=== PATIENT | male | born 1995 | race American Indian/Alaskan Native ===

== ENCOUNTER 2016-11-11 15:31 | Observation (INO) | payer BC ==
[2016-11-11] MEDS ORDERED: Sodium Chloride 0.9% 1,000 ML IV STA (15:48)
[2016-11-11] MEDS ORDERED: Folic Acid 1 MG, Thiamine 100 MG, Multivitamin (MVI) 10 ML in Dextrose 5% In Water 1,00... IV SCH (16:00)
--- NOTE | 2016-11-11 16:19 | ED PDOC ---
Arrival/HPI - General Chief Complaint: Abdominal Pain Time Seen by Provider: 11/11/16 15:41 Historian: Patient - History of Present Illness Narrative History of Present Illness (Text): 11/11/16 16:18 21 year old male presents to the emergency department with coffee ground emesis for the past 2-3 days. He also reports some epigastric discomfort. He states he has been drinking for the last week. No chest pain, shortness of breath, or dyspnea on exertion. Time/Duration: < week Symptom Onset: Gradual Symptom Course: Unchanged Modifying Factors (Text): None Past Medical History - Provider Review Nursing Documentation Reviewed: Yes - Infectious Disease Hx of Infectious Diseases: None - Tetanus Immunization Tetanus Immunization: Unknown - Cardiac Hx Cardiac Disorders: No - Pulmonary Hx Respiratory Disorders: Yes Hx Bronchitis: Yes - Neurological Hx Neurological Disorder: No - HEENT Hx HEENT Disorder: No - Renal Hx Renal Disorder: No - Endocrine/Metabolic Hx Endocrine Disorders: No - Hematological/Oncological Hx Blood Disorders: No - Integumentary Hx Dermatological Disorder: No - Musculoskeletal/Rheumatological Hx Musculoskeletal Disorders: No - Gastrointestinal Hx Gastrointestinal Disorders: Yes Hx Gastroesophageal Reflux: Yes - Genitourinary/Gynecological Hx Genitourinary Disorders: No - Psychiatric Hx Psychophysiologic Disorder: No Hx Depression: No Hx Emotional Abuse: No Hx Physical Abuse: No Hx Substance Use: Yes - Surgical History Hx Orthopedic Surgery: Yes (FEET) - Anesthesia Hx Anesthesia: Yes Hx Anesthesia Reactions: No Hx Malignant Hyperthermia: No - Suicidal Assessment Feels Threatened In Home Enviroment: No Family/Social History - Physician Review Nursing Documentation Reviewed: Yes Family/Social History: Unknown Family HX Smoking Status: Light Smoker < 10 Cigarettes Daily Hx Alcohol Use: No Hx Substance Use: Yes Substance used: marijuana Hx Substance Use Treatment: No Allergies/Home Meds Allergies/Adverse Reactions: Allergies No Known Allergies Allergy (Verified 11/11/16 15:53) Home Medications: Home Meds Medication Instructions Recorded Confirmed No Known Home Med 11/11/16 11/11/16 Review of Systems - Physician Review All systems were reviewed & negative as marked: Yes Physical Exam - Physical Exam Narrative Physical Exam (Text): - Review of Systems Constitutional: Normal. absent: Fatigue, Weight Change, Fevers Eyes: Normal ENT: Normal Respiratory: Normal absent: SOB, Cough, Sputum Cardiovascular: Normal absent: Chest pain, MILAN, Palpitations, Syncope Gastrointestinal: Coffee ground emesis, Epigastric discomfort absent: Diarrhea, Nausea Genitourinary: Normal. absent: Dysuria, Frequency, Hematuria Musculoskeletal: Normal. absent: Arthralgias, Back Pain, Neck Pain Skin: Normal Neurological: Normal absent: Focal Weakness Endocrine: Normal Hemo/Lymphatic: Normal Psychiatric: Normal - Physical exam Patient appears age appropriate, speaking full sentences without difficulty - Systems Exam Head: Present: Atraumatic, Normocephalic Pupils: Present: PERRL Extraocular Muscles: Present: EOMI Conjunctiva: Present: Normal Mouth: Present: Moist Mucous Membranes Neck: Present: Normal Range of Motion. No: MIDLINE TENDERNESS, Paraspinal Tenderness Respiratory/Chest: Present: Clear to Auscultation, Good Air Exchange. No: Respiratory Distress, Accessory Muscle Use, Tachypnic Cardiovascular: Present: Regular Rate and Rhythm, Normal S1, S2, Peripheral Pulses Present. No: Murmurs Abdomen: Present: Normal Bowel Sounds, No: Tenderness, Peritoneal Signs, Rebound, Guarding, Distention Back: Present: Normal Inspection. No: Midline Tenderness, Paraspinal Tenderness Upper Extremity: Present: Normal Inspection. No: Cyanosis, Edema Lower Extremity: Present: Normal Inspection. No: Edema Neurological: Present: GCS=15, Speech Normal, cranial nerves II through XII fully intact with no cerebellar abnormality, neuro-sensory fully intact. No focal neurological deficits. Skin: Present: Warm, Dry, Normal Color. No: Rashes Lymphatic: Present: OX3, NI, NC Psychiatric: Present: Alert, Oriented x 3, Normal Insight, Normal Concentration Vital Signs Reviewed: Yes Vital Signs Temp Pulse Resp BP Pulse Ox 11/11/16 18:09 67 16 147/67 97 11/11/16 15:56 98.2 F 85 16 149/71 100 Temperature: Afebrile Blood Pressure: Normal Pulse: Regular Respiratory Rate: Normal Appearance: Positive for: Well-Appearing, Non-Toxic, Comfortable Pain Distress: None Mental Status: Positive for: Alert and Oriented X 3 Medical Decision Making ED Course and Treatment: Impression: 21 year old male presents to the emergency department with coffee ground emesis for the past 2-3 days. On physical exam, patient has no acute findings. Differential Diagnosis included but are not limited to: Gastritis vs upper GI bleed vs peptic ulcer disease Plan: -- EKG, Chest X-ray -- Ativan, Protonix -- Reassess and disposition Progress Notes: CXR Impression: As read by me, no pneumothorax, no pneumonia, no cardiomegaly, no infiltrates 11/11/16 17:31 pt vomited once in the ED vomitus examined, does not appear coffee ground, brown in color Jamar, ED scribe present during rectal examination. Good tone, no hemorrhoids , hemmocult stool negative pt's repeat abd exam is soft/nt/nd 11/11/16 18:09 pt vomited after drinking water unable to tolerate PO aware of and agrees with admission plan Initial EKG shows sinus luzma 58bpm, RBBB, non-specific st-t wave changes in V3 , II. repeat EKG shows no evolving changes pt states PMD is Dr. Rodríguez Whitehead, Dr. Armstrong covering, paged, awaiting callback 11/11/16 18:[address] Armstrong, accepted pt to med/surg obs under her service - Lab Interpretations Lab Results: 11/11/16 16:05 11/11/16 16:05 Lab Results 11/11/16 16:05: Sodium 139, Potassium 3.4 L, Chloride 98, Carbon Dioxide 26, Anion Gap 18, BUN 18, Creatinine 1.1, Est GFR ( Amer) > 60, Est GFR (Non- Af Amer) > 60, Random Glucose 125 H, Calcium 10.6 H, Total Bilirubin 0.9, AST 30 , ALT 36, Alkaline Phosphatase 66, Total Protein 8.7 H, Albumin 5.0 H, Globulin 3.7, Albumin/Globulin Ratio 1.4, Lipase 132 11/11/16 16:05: PT 10.9, INR 1.01, APTT 30.1 11/11/16 16:05: WBC 8.8, RBC 5.35, Hgb 16.2, Hct 45.9, MCV 85.8, MCH 30.3, MCHC 35.3, RDW 13.5, Plt Count 247, MPV 10.3, Gran % 67.7, Lymph % (Auto) 21.8 L, Cottle % (Auto) 9.8 H, Eos % (Auto) 0.5 L, Baso % (Auto) 0.2, Gran # 5.94, Lymph # 1.9, Cottle # 0.9 H, Eos # 0.0, Baso # 0.02 - RAD Interpretation Radiology Orders: 11/11/16 15:52 CHEST PORTABLE [RAD] Stat - Medication Orders Current Medication Orders: Folic Acid 1 mg/ Thiamine HCl 100 mg/ Multivitamins/Vitamin C 10 ml/ Dextrose 1 ,011.2 mls @ 100 mls/hr IV .Q10H7M FILIPPO Potassium Chloride (Potassium Chloride 20 Meq/100 Ml) 20 meq in 100 mls @ 50 mls/hr IVPB ONCE ONE Stop: 11/11/16 20:12 Discontinued Medications Sodium Chloride (Sodium Chloride 0.9%) 1,000 mls @ 1,000 mls/hr IV .Q1H STA Stop: 11/11/16 16:47 Last Admin: 11/11/16 16:22 Dose: 1,000 mls/hr Famotidine (Pepcid 20mg/50ml Premix) 20 mg in 50 mls @ 100 mls/hr IV STAT STA Stop: 11/11/16 17:59 Last Admin: 11/11/16 17:40 Dose: 100 mls/hr Lorazepam (Ativan) 2 mg IVP ONCE ONE Stop: 11/11/16 15:49 Last Admin: 11/11/16 16:22 Dose: 2 mg Ondansetron HCl (Zofran Inj) 4 mg IVP STAT STA Stop: 11/11/16 17:31 Last Admin: 11/11/16 17:41 Dose: 4 mg Pantoprazole Sodium (Protonix Inj) 40 mg IVP STAT STA Stop: 11/11/16 15:49 Last Admin: 11/11/16 16:22 Dose: 40 mg - Andrésibe Statement The provider has reviewed the documentation as recorded by the Robert Rosas Provider Scribe Attestation: All medical record entries made by the Robert were at my direction and personally dictated by me. I have reviewed the chart and agree that the record accurately reflects my personal performance of the history, physical exam, medical decision making, and the department course for this patient. I have also personally directed, reviewed, and agree with the discharge instructions and disposition. Disposition/Present on Arrival - Present on Arrival Any Indicators Present on Arrival: No History of DVT/PE: No History of Uncontrolled Diabetes: No Urinary Catheter: No History of Decub. Ulcer: No History Surgical Site Infection Following: None - Disposition Have Diagnosis and Disposition been Completed?: Yes Diagnosis: Vomiting Disposition: HOSPITALIZED Disposition Time: 18:36 Patient Plan: Observation Condition: GOOD Referrals: Bautista Whitehead MD [Primary Care Provider] - Follow up with primary
--- NOTE | 2016-11-11 16:28 | RAD ---
HISTORY: cough COMPARISON: None available. TECHNIQUE: Chest, one view. FINDINGS: LUNGS: No focal consolidation. Please note that chest x-ray has limited sensitivity for the detection of pulmonary masses. PLEURA: No significant pleural effusion identified. No definite pneumothorax . CARDIOVASCULAR: The cardiomediastinal silhouette appears within normal limits of size. OSSEOUS STRUCTURES: No acute osseous abnormality identified. VISUALIZED UPPER ABDOMEN: Unremarkable. OTHER FINDINGS: None. IMPRESSION: No focal consolidation, significant pleural effusion, or definite pneumothorax identified.
[2016-11-11 16:34] LABS: ADD MANUAL DIFF? NO
[2016-11-11 16:42] LABS: BASO # 0.02 K/mm3 (0.0-2.0); BASO % 0.2 % (0.0-3.0); EOS % 0.5 % (1.5-5.0); GRAN # 5.94 (1.4-6.5); GRAN % 67.7 % (50.0-68.0); HEMATOCRIT 45.9 % (42.0-52.0); LYMPH # 1.9 (1.2-3.4); LYMPH % 21.8 % (22.0-35.0); MEAN CELL VOLUME 85.8 fL (80.0-105.0); MEAN CORPUSCULAR HEMOGLOBIN 30.3 pg (25.0-35.0); MEAN CORPUSCULAR HGB CONC 35.3 g/dl (31.0-37.0); MEAN PLATELET VOLUME 10.3 fl (7.0-11.0); MONO # 0.9 (0.1-0.6); MONO % 9.8 % (1.0-6.0); PLATELET COUNT 247 10^3/uL (120.0-450.0); RED CELL DISTRIBUTION WIDTH 13.5 % (11.5-14.5); WHITE BLOOD COUNT 8.8 10^3/ul (4.5-11.0)
[2016-11-11 16:53] LABS: ALB/GLOB RATIO 1.4 (1.1-1.8); ALKALINE PHOSPHATASE 66 U/L (38-133); ALT/SGPT 36 U/L (7-56); AST/SGOT 30 U/L (15-59); BILIRUBIN,TOTAL 0.9 mg/dL (0.2-1.3); BLOOD UREA NITROGEN 18 mg/dL (7-21); CALCIUM 10.6 mg/dL (8.4-10.5); CARBON DIOXIDE 26 mmol/L (21-33); CHLORIDE 98 mmol/L (98-107); GFR AFRICAN-AMERICAN > 60; GLUCOSE,RANDOM 125 mg/dL (70-110); INR 1.01 (0.93-1.08); LIPASE 132 U/L (23-300); PARTIAL THROMBOPLASTIN TIME 30.1 Seconds (23.7-30.8); POTASSIUM 3.4 mmol/L (3.6-5.0); SODIUM 139 mmol/L (132-148); TOTAL PROTEIN 8.7 g/dL (5.8-8.3)
[2016-11-11] MEDS ORDERED: Famotidine 20mg/50ml 20 MG/50 ML BAG IV STA (17:30)
[2016-11-11] MEDS: Dextrose 5%/0.45% NS 1,000 ML IV SCH (21:04)
--- NOTE | 2016-11-11 21:21 | HP ---
HISTORY OF PRESENT ILLNESS: The patient is a 21-year-old male who came to the Emergency Room because of intractable nausea and vomiting and his vomitus was brownish in color so he thought he was vomiti ng blood. He got panicky and came to the Emergency Room. He was complaining of epigastric discomfor t and complained of heartburn in the epigastric area. The patient does admit drinking heavy alcohol for the last 1 week. There was no sharon blood. Does not have any diarrhea. Does not have cramping or abdominal pain; however, he has epigastric pain. No history of fever or chills. PAST MEDICAL HISTORY: Peptic ulcer disease. For that he takes Tums or Nexium here and there. MEDICATIONS AT HOME: He is not on any medicine at home. PAST SURGICAL HISTORY: Significant for some foot surgery in the past. SOCIAL HISTORY: He does smoke less than 10 cigarettes a day, socially drinks and he had used marijua na in the past. REVIEW OF SYSTEMS: Significant for epigastric discomfort and nausea. PHYSICAL EXAMINATION: GENERAL: He is awake and alert, communicative. VITAL SIGNS: He is afebrile, pulse 85, respirations 16, blood pressure 149/71. LUNGS: Bilateral good airflow, no rhonchi or crackle. HEART: S1, S2 audible. ABDOMEN: Soft, positive epigastric discomfort. NEUROLOGIC: He is awake and alert, communicative. LABORATORY DATA: WBC is 8.8, hemoglobin 16, hematocrit 41, platelets 247. PT 10.9, INR 1.01. Chemi stry: Sodium 139, potassium 3.4, chloride 98, CO2 of 26, BUN 18, creatinine 1.1, blood sugar of 125, calcium 10.6, AST 30, ALT 36, alkaline phosphatase is 66. ASSESSMENT AND PLAN: 1. Alcohol intoxication. 2. Alcoholic gastritis. 3. Electrolyte imbalance. 4. Intractable nausea. PLAN: Will keep the patient on clear liquids, start him on IV fluid, start him on PPI and thiamine 1 00 mg daily. I will follow up his electrolytes in a.m. His potassium has been supplemented. Will s tart him on Librium and follow him closely. Guille Armstrong MD cc: [phone] TT: 11/11/2016 21:20:40 dn
[2016-11-11 23:30] VITALS: RESP 20
[2016-11-12 08:01] LABS: ADD MANUAL DIFF? NO
[2016-11-12 08:22] LABS: BASO # 0.02 K/mm3 (0.0-2.0); BASO % 0.2 % (0.0-3.0); EOS # 0.1 (0.0-0.7); EOS % 1.1 % (1.5-5.0); GRAN # 6.58 (1.4-6.5); GRAN % 67.4 % (50.0-68.0); HEMATOCRIT 43.1 % (42.0-52.0); LYMPH # 2.2 (1.2-3.4); LYMPH % 22.6 % (22.0-35.0); MEAN CELL VOLUME 87.2 fL (80.0-105.0); MEAN CORPUSCULAR HEMOGLOBIN 29.8 pg (25.0-35.0); MEAN CORPUSCULAR HGB CONC 34.1 g/dl (31.0-37.0); MEAN PLATELET VOLUME 10.7 fl (7.0-11.0); MONO # 0.9 (0.1-0.6); MONO % 8.7 % (1.0-6.0); PLATELET COUNT 237 10^3/uL (120.0-450.0); RED CELL DISTRIBUTION WIDTH 13.5 % (11.5-14.5); WHITE BLOOD COUNT 9.8 10^3/ul (4.5-11.0)
[2016-11-12] MEDS: Dextrose 5%/0.45% NS 1,000 ML IV SCH ×2 (08:33→12:26)
[2016-11-12 08:40] LABS: ALB/GLOB RATIO 1.3 (1.1-1.8); ALKALINE PHOSPHATASE 49 U/L (38-133); ALT/SGPT 34 U/L (7-56); AST/SGOT 29 U/L (15-59); BILIRUBIN,TOTAL 0.8 mg/dL (0.2-1.3); BLOOD UREA NITROGEN 11 mg/dL (7-21); CALCIUM 9.3 mg/dL (8.4-10.5); CARBON DIOXIDE 29 mmol/L (21-33); CHLORIDE 98 mmol/L (98-107); GFR AFRICAN-AMERICAN > 60; GLUCOSE,RANDOM 108 mg/dL (70-110); LIPASE 415 U/L (23-300); MAGNESIUM 1.7 mg/dL (1.7-2.2); PHOSPHOROUS 3.7 mg/dL (2.5-4.5); SODIUM 138 mmol/L (132-148); TOTAL PROTEIN 7.4 g/dL (5.8-8.3)
[2016-11-12] MEDS ORDERED: Thiamine 100 mg/ml Inj IM SCH (10:00)
[2016-11-12 12:04] LABS: FREE T4 0.76 ng/dL (0.78-2.19)
[2016-11-12 12:18] LABS: THYROID STIMULATING HORMONE 0.3 mIU/mL (0.46-4.68)
[2016-11-12 16:25] VITALS: BP 117/61; PULSE 62; TEMP 98.4; O2SAT 96
--- NOTE | 2016-11-12 17:56 | DS ---
The patient is a 21-year-old seen and examined. He states he is feeling great, he is hungry and want s to eat and wants to get out of here. Has no more nausea or vomiting. PHYSICAL EXAMINATION: VITAL SIGNS: He is afebrile, pulse 61, respirations 20, blood pressure 132/63. LUNGS: Bilateral fair airflow, no rhonchi or crackle. HEART: S1, S2 audible. ABDOMEN: Soft, nontender, no rebound, no guarding. NEUROLOGIC: The patient is awake and alert, communicative. Moves all extremities. LABORATORY EXAM: WBC is 9.8, hemoglobin 14.7, hematocrit 43, platelet 237. Chemistry: Sodium 138, potassium 3.0, chloride 98, CO2 29, BUN 11, creatinine 1.0, blood sugar of 108. ASSESSMENT: 1. Intractable nausea. 2. Gastritis secondary to alcohol overuse. 3. Alcoholic gastritis. 4. Electrolyte imbalance. PLAN: We will advance the patient's diet. If he is eating and tolerating, no nausea or vomiting and no abdominal pain, he will be discharged home later on today. He was given prescription of Protonix 40 daily. He is advised not to drink too much and follow up with Dr. Carl Whitehead as outpatient. Guille Armstrong MD cc: [phone] TT: 11/12/2016 17:55:34 pretty
--- NOTE | 2016-11-12 22:11 | CARD ---
APPROVED REPORT EKG Measurement Heart [id number] <Conclusion> Sinus bradycardia Right bundle branch block Minimal voltage criteria for LVH, may be normal variant Abnormal ECG
== END 2016-11-12 19:02 | disposition home or self-care (01) ==
LOC: ED 15:31 → ERH 18:36 → 5RNO 22:52
PROVIDERS: ADMIT Internal Medicine; ATTEND Internal Medicine
DX: K29.20 Alcoholic gastritis without bleeding (principal); F10.129 Alcohol abuse with intoxication, unspecified; F17.210 Nicotine dependence, cigarettes, uncomplicated; E87.8 Other disorders of electrolyte and fluid balance, not elsewhere classified; I45.10 Unspecified right bundle-branch block; K27.9 Peptic ulcer, site unspecified, unspecified as acute or chronic, without hemorrhage or perforation
CPT/HCPCS: 36415; 71010; 80053; 83690; 83735; 84100; 84439; 84443; 85025; 85610; 85730; 86850; 86900; 93005; 96361; 96365; 96372; 96375; 96376; 99285; C9113; G0378; J2060; J2405; J3411; J3480; J7040; J7042; J7070

== ENCOUNTER 2017-11-04 19:25 | Inpatient (IN) | payer BC, OTHER ==
--- NOTE | 2017-11-04 20:02 | ED PDOC ---
Arrival/HPI - General Chief Complaint: GI Problem Time Seen by Provider: 11/04/17 19:26 Historian: Patient - History of Present Illness Narrative History of Present Illness (Text): Patient is a 22 year old male with a past medical history of GERD and ETOH abuse who presents to the emergency department for evaluation and treatment of nausea, vomiting, and abdominal pain which began evening after binge drinking. States abdominal pain remains localized to the epigastric region and is characterized as a being sharp in nature. Associated with what the patient describes as being several bouts of coffee ground emesis since onset. Admits to ingesting red fruit punch and jello today. Also admits to experiencing bright red emesis x 1. Denies fever, chest pain, shortness of breath, constipation, and urinary symptoms. PMD: Dr. Hyde Past Medical History - Provider Review Nursing Documentation Reviewed: Yes - Travel History Have you recently traveled outside [place] w/in the past 3 mons?: No - Infectious Disease Hx of Infectious Diseases: None - Tetanus Immunization Tetanus Immunization: Unknown - Cardiac Hx Cardiac Disorders: No - Pulmonary Hx Respiratory Disorders: Yes Hx Bronchitis: Yes - Neurological Hx Neurological Disorder: No - HEENT Hx HEENT Disorder: No - Renal Hx Renal Disorder: No - Endocrine/Metabolic Hx Endocrine Disorders: No - Hematological/Oncological Hx Blood Disorders: No - Integumentary Hx Dermatological Disorder: No - Musculoskeletal/Rheumatological Hx Musculoskeletal Disorders: No Hx Falls: No - Gastrointestinal Hx Gastrointestinal Disorders: Yes Hx Gastroesophageal Reflux: Yes - Genitourinary/Gynecological Hx Genitourinary Disorders: No - Psychiatric Hx Psychophysiologic Disorder: No Hx Depression: No Hx Emotional Abuse: No Hx Physical Abuse: No Hx Substance Use: Yes (marijuana) - Surgical History Hx Orthopedic Surgery: Yes (FEET Flat foot and bunion repair) - Anesthesia Hx Anesthesia: Yes Hx Anesthesia Reactions: No Hx Malignant Hyperthermia: No - Suicidal Assessment Feels Threatened In Home Enviroment: No Family/Social History - Physician Review Nursing Documentation Reviewed: Yes Family/Social History: Unknown Family HX Smoking Status: Heavy Smoker > 10 Cigarettes Daily Hx Alcohol Use: Yes Frequency of alcohol use: Few days per week Hx Substance Use: Yes (marijuana) Substance used: Marijuana Route: Oral Hx Substance Use Treatment: No Allergies/Home Meds Allergies/Adverse Reactions: Allergies No Known Allergies Allergy (Verified 11/11/16 15:53) Home Medications: Home Meds Medication Instructions Recorded Confirmed Famotidine [Pepcid] 40 mg PO HS 11/04/17 11/04/17 Ondansetron ODT [Zofran ODT] 8 mg PO PRN PRN 11/04/17 11/04/17 Review of Systems - Physician Review All systems were reviewed & negative as marked: Yes - Review of Systems Constitutional: Normal Eyes: Normal ENT: Normal Respiratory: Normal Cardiovascular: Normal Gastrointestinal: Abdominal Pain, Diarrhea, Nausea, Vomiting, Hematemesis. absent: Hematochezia Musculoskeletal: Normal Skin: Normal Neurological: Normal Endocrine: Normal Hemo/Lymphatic: Normal Psychiatric: Normal Physical Exam Vital Signs Temp Pulse Resp BP Pulse Ox 11/04/17 20:04 98.1 F 81 18 130/50 L 100 Temperature: Afebrile Blood Pressure: Normal Pulse: Regular Respiratory Rate: Normal Appearance: Positive for: Well-Appearing, Non-Toxic, Comfortable Pain Distress: None Mental Status: Positive for: Alert and Oriented X 3 - Systems Exam Head: Present: Atraumatic, Normocephalic Pupils: Present: PERRL Conjunctiva: Present: Normal Nose (External): Present: Atraumatic Respiratory/Chest: Present: Clear to Auscultation, Good Air Exchange. No: Respiratory Distress, Accessory Muscle Use Cardiovascular: Present: Regular Rate and Rhythm, Normal S1, S2 Abdomen: Present: Normal Bowel Sounds. No: Tenderness, Distention, Peritoneal Signs, Rebound, Guarding Rectal: Present: Normal Rectal Tone. No: Occult Blood, Rectal Tenderness, Gross Blood, Melena, Hemorrhoids, Fissures Upper Extremity: Present: Normal Inspection Lower Extremity: Present: Normal Inspection Neurological: Present: GCS=15, CN II-XII Intact, Speech Normal, Motor Func Grossly Intact, Normal Sensory Function Skin: Present: Warm, Dry, Normal Color Psychiatric: Present: Alert, Oriented x 3, Normal Concentration Medical Decision Making ED Course and Treatment: Assessment and Plan: Patient is a 22 year old male with a past medical history of GERD and ETOH abuse who presents to the emergency department for evaluation and treatment of nausea, vomiting, and abdominal pain which began evening (11/01/2017) after binge drinking. GI Bleed ETOH Abuse 11/04/17 20:25 - CBC, CMP, UA< Lipase, Magnesium - PT, PTT - Type and Screen - Chest Portable - zofran, PPI, and IVF NS @ 100 11/04/17 20:36 - CXR reviewed and appreciated- no active disease 11/04/17 20:52 - patient started on protonix gtt - spoke with PMD who has accepted the patient to his service - call placed for Dr. Clayton 11/04/17 20:58 - Dr. Clayton made aware of consult, case reviewed, agrees with management - Lab Interpretations Lab Results: 11/04/17 19:45 11/04/17 19:45 Lab Results 11/04/17 19:45: Blood Type O POSITIVE, Antibody Screen Negative, BBK History Checked Patient has bt 11/04/17 19:45: Sodium 140, Potassium 3.0 L, Chloride 94 L, Carbon Dioxide 30, Anion Gap 19, BUN 15, Creatinine 1.2, Est GFR ( Amer) > 60, Est GFR (Non- Af Amer) > 60, Random Glucose 108, Calcium 10.3, Magnesium 1.7, Total Bilirubin 0.9, AST 30, ALT 35, Alkaline Phosphatase 61, Total Protein 8.8 H, Albumin 5.0 H , Globulin 3.8, Albumin/Globulin Ratio 1.3, Lipase 245 11/04/17 19:45: PT 11.4, INR 1.00, APTT 31.5 11/04/17 19:45: WBC 9.8, RBC 5.25, Hgb 16.0, Hct 45.0, MCV 85.7, MCH 30.5, MCHC 35.6, RDW 13.5, Plt Count 240, MPV 10.5, Gran % 71.1 H, Lymph % (Auto) 17.5 L, Hays % (Auto) 10.8 H, Eos % (Auto) 0.4 L, Baso % (Auto) 0.2, Gran # 6.94 H, Lymph # (Auto) 1.7, Hays # (Auto) 1.1 H, Eos # (Auto) 0.0, Baso # (Auto) 0.02 I have reviewed the lab results: Yes - RAD Interpretation Radiology Orders: 11/04/17 20:07 CHEST PORTABLE [RAD] Stat - EKG Interpretation EKG Interpretation (Text): NSR, LVH, hr 64 bpm, QTc 437ms 11/04/17 21:30 Interpreted by ED Physician: Yes Type: 12 lead EKG - Medication Orders Current Medication Orders: Pantoprazole Sodium (Protonix 40mg Ivpb) 40 mg in 100 mls @ 20 mls/hr IVPB .Q5H FILIPPO Last Admin: 11/04/17 20:59 Dose: 20 mls/hr eMAR Start Stop Document 11/04/17 20:59 CNR (Rec: 11/04/17 20:59 CNR [id number]) Intravenous Solution Start Date 11/04/17 Start Time 20:59 Sodium Chloride (Sodium Chloride 0.9%) 1,000 mls @ 100 mls/hr IV .Q10H FILIPPO Discontinued Medications Sodium Chloride (Sodium Chloride 0.9%) 1,000 mls @ 1,000 mls/hr IV .Q1H STA Stop: 11/04/17 21:06 Last Admin: 11/04/17 20:21 Dose: 1,000 mls/hr eMAR Start Stop Document 11/04/17 20:21 CNR (Rec: 11/04/17 20:21 CNR [id number]) Intravenous Solution Start Date 11/04/17 Start Time 20:21 Ondansetron HCl (Zofran Inj) 4 mg IVP STAT STA Stop: 11/04/17 20:16 Last Admin: 11/04/17 20:21 Dose: 4 mg IVP Administration Document 11/04/17 20:21 CNR (Rec: 11/04/17 20:21 CNR [id number]) Charges for Administration # of IVP Administrations 1 Pantoprazole Sodium (Protonix Inj) 40 mg IVP STAT STA Stop: 11/04/17 20:08 Last Admin: 11/04/17 20:21 Dose: 40 mg IVP Administration Document 11/04/17 20:21 CNR (Rec: 11/04/17 20:21 CNR [id number]) Charges for Administration # of IVP Administrations 1 Potassium Chloride (Potassium Chloride Oral Soln) 40 meq PO ONCE ONE Stop: 11/04/17 20:49 Last Admin: 11/04/17 20:59 Dose: 40 meq Disposition/Present on Arrival - Present on Arrival Any Indicators Present on Arrival: No History of DVT/PE: No History of Uncontrolled Diabetes: No Urinary Catheter: No History of Decub. Ulcer: No History Surgical Site Infection Following: None - Disposition Have Diagnosis and Disposition been Completed?: Yes Diagnosis: GI bleed Disposition: HOSPITALIZED Disposition Time: 21:30 Patient Plan: Admission Patient Problems: Current Active Problems Problem Status Onset GI bleed Acute Condition: GOOD
[2017-11-04] MEDS ORDERED: Sodium Chloride 0.9% 1,000 ML IV STA (20:07)
[2017-11-04 20:39] LABS: BASO # 0.02 K/mm3 (0.0-2.0); BASO % 0.2 % (0.0-3.0); EOS % 0.4 % (1.5-5.0); GRAN # 6.94 (1.4-6.5); GRAN % 71.1 % (50.0-68.0); LYMPH # 1.7 (1.2-3.4); LYMPH % 17.5 % (22.0-35.0); MEAN CELL VOLUME 85.7 fl (80.0-105.0); MEAN CORPUSCULAR HEMOGLOBIN 30.5 pg (25.0-35.0); MEAN CORPUSCULAR HGB CONC 35.6 g/dl (31.0-37.0); MEAN PLATELET VOLUME 10.5 fl (7.0-11.0); MONO # 1.1 (0.1-0.6); MONO % 10.8 % (1.0-6.0); RBC 5.25 10^6/uL (3.5-6.1); RED CELL DISTRIBUTION WIDTH 13.5 % (11.5-14.5); WHITE BLOOD COUNT 9.8 10^3/ul (4.5-11.0)
[2017-11-04 20:46] LABS: PARTIAL THROMBOPLASTIN TIME 31.5 Seconds (25.1-36.5); PROTHROMBIN TIME 11.4 SECONDS (9.4-12.5)
[2017-11-04 20:47] LABS: ALB/GLOB RATIO 1.3 (1.1-1.8); ALT/SGPT 35 U/L (7-56); AST/SGOT 30 U/L (17-59); BLOOD UREA NITROGEN 15 mg/dL (7-21); CALCIUM 10.3 mg/dL (8.4-10.5); GFR AFRICAN-AMERICAN > 60; GFR NON-AFRICAN AMERICAN > 60; LIPASE 245 U/L (23-300)
[2017-11-04] MEDS ORDERED: Potassium Chloride 40 mEq/30 ml LIQ UD PO ONE (20:48)
[2017-11-04] MEDS: Pantoprazole 40mg/100mL NS 40 MG/100 ML BAG IVPB SCH (20:59)
[2017-11-04 21:56] VITALS: BMI 25.7
[2017-11-04] MEDS: Sodium Chloride 0.9% 1,000 ML IV SCH (22:13)
[2017-11-05] MEDS: Pantoprazole 40mg/100mL NS 40 MG/100 ML BAG IVPB SCH ×5 (02:25→22:29)
--- NOTE | 2017-11-05 06:49 | CP.PCM.CON ---
<Emelia Hicks - Last Filed: 11/05/17 11:09> History of Present Illness - History of Present Illness History of Present Illness: GI Consult Note for Rebeca Lora PGY2 This is a 22yo male with past medical history of GERD, gastritis, EtOH use and marijuana use that came to ED for nausea and vomiting x 3 days. Patient states he had a bottle of wine on and in the morning he started to vomit coffee ground emesis several times. He kept vomiting since then. He also reports epigastric pain that does not radiate. He denies recent travel, trying new food, sick contacts, chest pain, shortness of breath, diarrhea, fever/chills , dysuria or hematuria. Patient said he gets this about once per year. He was recently at [facility] for similar symptoms. He had an EGD with Dr. Rodriguez 7yrs ago. Patient states it showed that he "has trouble draining fluid from his stomach". Past medical history: GERD, gastritis, EtOH use Past surgical history: Foot surgery Home meds: None Allergies: NKDA Social history: Drinks 1 bottle of wine about once per week. Smokes marijuana 5x per week. Smokes 1/2 ppd x 4 yrs Family history: Denies Review of Systems - Review of Systems All systems: reviewed and no additional remarkable complaints except Review of Systems: 12 Point ROS reviewed as per HPI and is otherwise negative. Past Patient History - Infectious Disease Hx of Infectious Diseases: None - Tetanus Immunizations Tetanus Immunization: Unknown - Past Social History Smoking Status: Heavy Smoker > 10 Cigarettes Daily - CARDIAC Hx Cardiac Disorders: No - PULMONARY Hx Respiratory Disorders: Yes Hx Bronchitis: Yes - NEUROLOGICAL Hx Neurological Disorder: No - HEENT Hx HEENT Problems: No - RENAL Hx Chronic Kidney Disease: No - ENDOCRINE/METABOLIC Hx Endocrine Disorders: No - HEMATOLOGICAL/ONCOLOGICAL Hx Blood Disorders: No - INTEGUMENTARY Hx Dermatological Problems: No - MUSCULOSKELETAL/RHEUMATOLOGICAL Hx Falls: No - GASTROINTESTINAL Hx Gastrointestinal Disorders: Yes Hx Gastroesophageal Reflux: Yes - GENITOURINARY/GYNECOLOGICAL Hx Genitourinary Disorders: No - PSYCHIATRIC Hx Psychophysiologic Disorder: No Hx Depression: No Hx Emotional Abuse: No Hx Physical Abuse: No - SURGICAL HISTORY Hx Orthopedic Surgery: Yes (FEET Flat foot and bunion repair) - ANESTHESIA Hx Anesthesia: Yes Hx Anesthesia Reactions: No Hx Malignant Hyperthermia: No Meds Allergies/Adverse Reactions: Allergies Allergy/AdvReac Type Severity Reaction Status Date / Time No Known Allergies Allergy Verified 11/11/16 15:53 - Medications Medications: Current Medications Diazepam (Valium) 5 mg PO Q8 FILIPPO PRN Reason: Protocol Last Admin: 11/05/17 06:00 Dose: 5 mg Pantoprazole Sodium (Protonix 40mg Ivpb) 40 mg in 100 mls @ 20 mls/hr IVPB .Q5H [facility] Last Admin: 11/05/17 02:25 Dose: 20 mls/hr Sodium Chloride (Sodium Chloride 0.9%) 1,000 mls @ 100 mls/hr IV .Q10H [facility] Last Admin: 11/04/17 22:13 Dose: 100 mls/hr Ondansetron HCl (Zofran Inj) 4 mg IM Q12 PRN PRN Reason: Nausea/Vomiting Last Admin: 11/04/17 22:13 Dose: 4 mg Physical Exam - Constitutional Appears: No Acute Distress - Head Exam Head Exam: ATRAUMATIC, NORMAL INSPECTION, NORMOCEPHALIC - Eye Exam Eye Exam: Normal appearance, PERRL Pupil Exam: NORMAL ACCOMODATION, PERRL - ENT Exam ENT Exam: Mucous Membranes Moist - Respiratory Exam Respiratory Exam: Clear to Auscultation Bilateral, NORMAL BREATHING PATTERN. absent: Rales, Rhonchi, Wheezes - Cardiovascular Exam Cardiovascular Exam: REGULAR RHYTHM, +S1, +S2. absent: Gallop, Rubs, Systolic Murmur - GI/Abdominal Exam GI & Abdominal Exam: Normal Bowel Sounds, Soft, Tenderness (mild epigastric ). absent: Mass, Rebound, Rigid - Extremities Exam Extremities exam: Positive for: normal inspection. Negative for: calf tenderness, pedal edema - Neurological Exam Neurological exam: Alert, CN II-XII Intact, Oriented x3 - Psychiatric Exam Psychiatric exam: Normal Affect, Normal Mood - Skin Skin Exam: Dry, Intact, Warm Results - Vital Signs Recent Vital Signs: Last Vital Signs Temp 98.7 F 11/05/17 05:49 Pulse 67 11/05/17 05:49 Resp 18 11/05/17 05:49 BP 140/89 11/05/17 05:49 Pulse Ox 100 11/05/17 05:49 - Labs Result Diagrams: 11/05/17 07:20 11/05/17 07:30 Assessment & Plan - Assessment and Plan (Free Text) Assessment: This is a 22yo male with past medical history of GERD, gastritis, EtOH use and marijuana use who was admitted for 1. Intractable nausea/vomiting - Can be secondary to hyperemesis from marijuana v. gastritis from EtOH use 2. GI bleed- coffee ground emesis as per nursing - Hgb normal and stable 3. Hypokalemia 4. GERD 5. Hx of gastritis 6. EtOH Use 7. Marijuana use Plan: Hgb is stable. Patient is on Protonix drip. Will increase frequency of Zofran prn. Recommend patient to refrain from marijuana and alcohol use which can cause gastritis as well as nausea/vomiting. Coffee ground emesis can be from retching. Will continue to monitor H/H. Will monitor K and replace as needed. Will plan for EGD tomorrow. Keep patient NPO. Limit the amount of ice chips. Case seen, discussed and reviewed with Dr. Clayton. Rebeca Hicks PGY2 - Date & Time Date: 11/05/17 Time: 08:09 <Monty Clayton V - Last Filed: 11/06/17 00:13> Meds - Medications Medications: Current Medications Benzocaine/Menthol (Cepacol Sore Throat) 1 clarisa MT Q2H PRN PRN Reason: Sore Throat Last Admin: 11/05/17 20:41 Dose: 1 clarisa Diazepam (Valium) 5 mg PO Q8 PRN; Protocol PRN Reason: Agitation Pantoprazole Sodium (Protonix 40mg Ivpb) 40 mg in 100 mls @ 20 mls/hr IVPB .Q5H FILIPPO Last Admin: 11/05/17 22:29 Dose: 20 mls/hr Sodium Chloride (Sodium Chloride 0.9%) 1,000 mls @ 100 mls/hr IV .Q10H FILIPPO Last Admin: 11/05/17 20:41 Dose: 100 mls/hr Ondansetron HCl (Zofran Inj) 4 mg IVP Q6H PRN PRN Reason: Nausea/Vomiting Last Admin: 11/05/17 19:20 Dose: 4 mg Results - Vital Signs Recent Vital Signs: Last Vital Signs Temp 98.8 F 11/05/17 23:21 Pulse 56 L 11/05/17 23:21 Resp 20 11/05/17 23:21 BP 115/64 11/05/17 18:00 Pulse Ox 97 11/05/17 23:21 - Labs Result Diagrams: 11/05/17 07:20 11/05/17 07:30 Labs: Laboratory Results - last 24 hr 11/05/17 11/05/17 07:20 07:30 WBC 9.6 RBC 4.83 Hgb 14.3 Hct 41.9 L MCV 86.7 MCH 29.6 MCHC 34.1 RDW 13.6 Plt Count 214 MPV 10.4 Sodium 141 Potassium 3.3 L Chloride 100 Carbon Dioxide 29 Anion Gap 16 BUN 14 Creatinine 1.1 Est GFR ( Amer) > 60 Est GFR (Non-Af Amer) > 60 Random Glucose 99 Calcium 9.3 Total Bilirubin 1.0 AST 26 ALT 31 Alkaline Phosphatase 48 Total Protein 7.4 Albumin 4.1 Globulin 3.3 Albumin/Globulin Ratio 1.3 Attending/Attestation - Attestation I have personally seen and examined this patient.: Yes I have fully participated in the care of the patient.: Yes I have reviewed all pertinent clinical information: Yes Notes (Text): This is an addendum to GI consult report dictated by the Hunter Guide.The patient was seen and examined earlier. Medical records, lab studies, imagings were reviewed. Last 24 hours events reviewed. Agreed with the above treatment plan as outlined in Hunter Guide 's notes the with the addition of the following patient still has belching and vomiting coffee-ground material History of EtOH use on examination mild tenderness in the epigastric area was noticed Continue PPI Close follow-up of hemoglobin Would need EGD to further evaluate The scope benefits alternatives explained and informed consent was obtained 11/06/17 00:06
[2017-11-05 08:05] LABS: HEMOGLOBIN 14.3 g/dL (14.0-18.0); MEAN CELL VOLUME 86.7 fl (80.0-105.0); MEAN CORPUSCULAR HEMOGLOBIN 29.6 pg (25.0-35.0); MEAN CORPUSCULAR HGB CONC 34.1 g/dl (31.0-37.0); MEAN PLATELET VOLUME 10.4 fl (7.0-11.0); RBC 4.83 10^6/uL (3.5-6.1); RED CELL DISTRIBUTION WIDTH 13.6 % (11.5-14.5); WHITE BLOOD COUNT 9.6 10^3/ul (4.5-11.0)
[2017-11-05] MEDS: Sodium Chloride 0.9% 1,000 ML IV SCH ×3 (08:16→20:41)
[2017-11-05 09:25] LABS: ALB/GLOB RATIO 1.3 (1.1-1.8); ALBUMIN 4.1 g/dL (3.0-4.8); ALT/SGPT 31 U/L (7-56); AST/SGOT 26 U/L (17-59); BLOOD UREA NITROGEN 14 mg/dL (7-21); CALCIUM 9.3 mg/dL (8.4-10.5); GFR AFRICAN-AMERICAN > 60; GFR NON-AFRICAN AMERICAN > 60
--- NOTE | 2017-11-05 09:28 | RAD ---
HISTORY: abd pain COMPARISON: 11/11/2016 FINDINGS: LUNGS: No active pulmonary disease. PLEURA: No significant pleural effusion identified, no pneumothorax apparent. CARDIOVASCULAR: Normal. OSSEOUS STRUCTURES: No significant abnormalities. VISUALIZED UPPER ABDOMEN: Normal. OTHER FINDINGS: None. IMPRESSION: No active disease.
--- NOTE | 2017-11-05 10:07 | CARD ---
APPROVED REPORT EKG Measurement Heart [id number] <Conclusion> Normal sinus rhythm Incomplete right bundle branch block Moderate voltage criteria for LVH, may be normal variant NSSTW changes, new
[2017-11-05] MEDS ORDERED: Lidocaine 2% Inj (20ml) ONE (14:38)
[2017-11-05] MEDS ORDERED: Propofol 10 mg/ml Inj (20 ML) ONE (14:38)
[2017-11-05 18:01] VITALS: RESP 20
[2017-11-05] MEDS: Benzocaine/Menthol (Cepacol) Lozenge MT PRN (20:41)
[2017-11-06] MEDS: Benzocaine/Menthol (Cepacol) Lozenge MT PRN ×2 (00:53→05:51)
[2017-11-06] MEDS: Pantoprazole 40mg/100mL NS 40 MG/100 ML BAG IVPB SCH (03:09)
--- NOTE | 2017-11-06 03:42 | CP.PCM.PN ---
Subjective - Date & Time of Evaluation Date of Evaluation: 11/06/17 Time of Evaluation: 03:41 - Subjective Subjective: S:Patient was seen at bedside. He complained of throat pain. Has no other complaints. Medical record was reviewed. O: Last Vital Signs 3 Temp 98.9 F 11/06/17 06:00 Pulse 68 11/06/17 06:00 Resp 20 11/06/17 06:00 BP 120/62 11/06/17 06:00 Pulse Ox 99 11/06/17 10:24 Awake,alert,not in distress. HEENT: Oropharyngeal mucosa normal. NAD. A:Throat pain. P: Cepacol Lozenge. Objective - Vital Signs/Intake and Output Vital Signs (last 24 hours): Temp Pulse Resp BP Pulse Ox 98.8 F 56 L 20 115/64 97 11/05/17 23:21 11/05/17 23:21 11/05/17 23:21 11/05/17 18:00 11/05/17 23:21 Intake and Output: 11/05/17 11/06/17 18:59 06:59 Intake Total 1840 600 Output Total 100 Balance 1740 600 - Medications Medications: Current Medications Benzocaine/Menthol (Cepacol Sore Throat) 1 clarisa MT Q2H PRN PRN Reason: Sore Throat Last Admin: 11/06/17 00:53 Dose: 1 clarisa Diazepam (Valium) 5 mg PO Q8 PRN; Protocol PRN Reason: Agitation Pantoprazole Sodium (Protonix 40mg Ivpb) 40 mg in 100 mls @ 20 mls/hr IVPB .Q5H [facility] Last Admin: 11/06/17 03:09 Dose: 20 mls/hr Sodium Chloride (Sodium Chloride 0.9%) 1,000 mls @ 100 mls/hr IV .Q10H FILIPPO Last Admin: 11/05/17 20:41 Dose: 100 mls/hr Ondansetron HCl (Zofran Inj) 4 mg IVP Q6H PRN PRN Reason: Nausea/Vomiting Last Admin: 11/05/17 19:20 Dose: 4 mg - Labs Labs: 11/05/17 07:20 11/05/17 07:30 PT 11.4 SECONDS (9.4-12.5) 11/04/17 19:45 INR 1.00 (0.93-1.08) 11/04/17 19:45 APTT 31.5 Seconds (25.1-36.5) 11/04/17 19:45
[2017-11-06] MEDS: Sodium Chloride 0.9% 1,000 ML IV SCH ×2 (05:04→06:32)
[2017-11-06 06:55] LABS: MEAN CELL VOLUME 88.4 fl (80.0-105.0); MEAN CORPUSCULAR HEMOGLOBIN 29.1 pg (25.0-35.0); MEAN CORPUSCULAR HGB CONC 32.9 g/dl (31.0-37.0); MEAN PLATELET VOLUME 10.1 fl (7.0-11.0); RBC 4.47 10^6/uL (3.5-6.1); RED CELL DISTRIBUTION WIDTH 13.5 % (11.5-14.5); WHITE BLOOD COUNT 7.4 10^3/ul (4.5-11.0)
--- NOTE | 2017-11-06 08:06 | CP.PCM.PN ---
<Emelia Hicks - Last Filed: 11/06/17 10:23> Subjective - Date & Time of Evaluation Date of Evaluation: 11/06/17 Time of Evaluation: 07:00 - Subjective Subjective: GI Progress Note for Rebeca Lora PGY2 Patient seen and examined at bedside. There were no acute overnight events. Patient reports he feels much better today and is very hungry. He has not had any vomiting overnight. He would like to try soft food. He denies chest pain, shortness of breath, nausea/vomiting/diarrhea, fever or chills. Objective - Vital Signs/Intake and Output Vital Signs (last 24 hours): Temp Pulse Resp BP Pulse Ox 98.8 F 56 L 20 115/64 97 11/05/17 23:21 11/05/17 23:21 11/05/17 23:21 11/05/17 18:00 11/05/17 23:21 Intake and Output: 11/06/17 11/06/17 06:59 18:59 Intake Total 1280 Balance 1280 - Medications Medications: Current Medications Benzocaine/Menthol (Cepacol Sore Throat) 1 clarisa MT Q2H PRN PRN Reason: Sore Throat Last Admin: 11/06/17 05:51 Dose: 1 clarisa Diazepam (Valium) 5 mg PO Q8 PRN; Protocol PRN Reason: Agitation Pantoprazole Sodium (Protonix 40mg Ivpb) 40 mg in 100 mls @ 20 mls/hr IVPB .Q5H [facility] Last Admin: 11/06/17 03:09 Dose: 20 mls/hr Sodium Chloride (Sodium Chloride 0.9%) 1,000 mls @ 100 mls/hr IV .Q10H FILIPPO Last Admin: 11/06/17 06:32 Dose: 100 mls/hr Ondansetron HCl (Zofran Inj) 4 mg IVP Q6H PRN PRN Reason: Nausea/Vomiting Last Admin: 11/05/17 19:20 Dose: 4 mg - Labs Labs: 11/06/17 06:20 11/05/17 07:30 PT 11.4 SECONDS (9.4-12.5) 11/04/17 19:45 INR 1.00 (0.93-1.08) 11/04/17 19:45 APTT 31.5 Seconds (25.1-36.5) 11/04/17 19:45 - Constitutional Appears: No Acute Distress - Head Exam Head Exam: ATRAUMATIC, NORMAL INSPECTION, NORMOCEPHALIC - Eye Exam Eye Exam: Normal appearance, PERRL Pupil Exam: NORMAL ACCOMODATION - ENT Exam ENT Exam: Mucous Membranes Moist - Respiratory Exam Respiratory Exam: Clear to Ausculation Bilateral, NORMAL BREATHING PATTERN. absent: Rales, Rhonchi, Wheezes - Cardiovascular Exam Cardiovascular Exam: REGULAR RHYTHM, +S1, +S2. absent: Gallop, Rubs, Murmur - GI/Abdominal Exam GI & Abdominal Exam: Soft, Normal Bowel Sounds. absent: Rigid, Tenderness, Mass , Rebound - Extremities Exam Extremities Exam: Normal Inspection. absent: Calf Tenderness, Pedal Edema - Neurological Exam Neurological Exam: Alert, Awake, CN II-XII Intact, Oriented x3 - Psychiatric Exam Psychiatric exam: Normal Affect, Normal Mood - Skin Skin Exam: Dry, Warm Assessment and Plan - Assessment and Plan (Free Text) Assessment: This is a 22yo male with past medical history of GERD, gastritis, EtOH use and marijuana use who was admitted for 1. Intractable nausea/vomiting - Can be secondary to esophagitis seen on EGD 2. GI bleed - secondary esophageal ulcers seen on EGD 3. Hypokalemia 4. GERD 5. Hx of gastritis 6. EtOH Use 7. Marijuana use Plan: EGD showed esophagitis, multiple esophageal ulcerations and erosive gastropathy. Eosinophilic esophagitis is suspected, but will await pathology of biopsies. Will advance diet as tolerated. Will monitor electrolytes and replace as needed. Recommend high dose PPI as outpatient. Recommend alcohol and marijuana cessation. Patient counseled on proper diet that is low in acid. Patient can be discharged home and follow up with Dr. Clayton as an outpatient. Case seen, discussed and reviewed with Dr. Clayton. Rebeca Hicks PGY2 <Monty Clayton V - Last Filed: 11/06/17 23:21> Objective - Vital Signs/Intake and Output Vital Signs (last 24 hours): Temp Pulse Resp BP Pulse Ox 98.9 F 68 20 120/62 99 11/06/17 06:00 11/06/17 06:00 11/06/17 06:00 11/06/17 06:00 11/06/17 10:24 - Labs Labs: 11/06/17 06:20 11/06/17 06:20 PT 11.4 SECONDS (9.4-12.5) 11/04/17 19:45 INR 1.00 (0.93-1.08) 11/04/17 19:45 APTT 31.5 Seconds (25.1-36.5) 11/04/17 19:45 Attending/Attestation - Attestation I have personally seen and examined this patient.: Yes I have fully participated in the care of the patient.: Yes I have reviewed all pertinent clinical information, including history, physical exam and plan: Yes Notes (Text): This is an addendum to GI progress report dictated by the Driller'S Offsider.The patient was seen and examined earlier. Medical records, lab studies, imagings were reviewed. Last 24 hours events reviewed. Agreed with the above treatment plan as outlined in Driller'S Offsider 's notes the with the addition of the following on examination abdomen soft no tenderness Tolerating liquid diet and the diagnosis and advance to soft diet Continue Carafate and PPI Patient will need repeat EGD in 6-8 weeks' time based on the biopsy report 11/06/17 23:18
[2017-11-06 08:10] VITALS: BP 120/62; PULSE 68; TEMP 98.9; O2SAT 99
[2017-11-06 08:15] LABS: ALB/GLOB RATIO 1.3 (1.1-1.8); ALBUMIN 3.7 g/dL (3.0-4.8); ALT/SGPT 34 U/L (7-56); AST/SGOT 29 U/L (17-59); BLOOD UREA NITROGEN 9 mg/dL (7-21); CALCIUM 8.5 mg/dL (8.4-10.5); GFR AFRICAN-AMERICAN > 60; GFR NON-AFRICAN AMERICAN > 60
[2017-11-06] MEDS ORDERED: Potassium Chloride 20 mEq ER Tab PO STA (08:31)
[2017-11-06] MEDS ORDERED: Potassium Chloride 20 mEq ER Tab PO ONE (09:09)
--- NOTE | 2017-11-06 12:47 | HP ---
DATE OF EXAM: 11/04/2017 ADMITTING HISTORY AND PHYSICAL HISTORY OF PRESENT ILLNESS: The patient is a 22-year-old male with a history of alcohol abuse, history of gastroesophageal reflux disease, who presented to the emergency room complaining of abdominal pain and hematemesis. The patient had been binge drinking earlier, but he also admitted to drinking fruit juices and punch earlier. He complains that the pain is a burning sensation in the midepigastric area. The patient has apparently no other past medical history. SOCIAL HISTORY: He admits to smoking marijuana just about daily. He smokes about a pack of cigarettes a day. He admits to excessive alcohol consumption. ALLERGIES: HE HAS NO KNOWN MEDICAL ALLERGIES. MEDICATIONS AT THE TIME OF ADMISSION: Included Pepcid 40 mg at bedtime and Zofran orally disintegrating tablets as needed. REVIEW OF SYSTEMS: Otherwise unremarkable. PHYSICAL EXAMINATION: VITAL SIGNS: The blood pressure is 130/50, heart rate is 81 and he is afebrile. HEENT: Examination of the head, eyes, ears, nose and throat is unremarkable. NECK: Supple with no lymphadenopathy and no goiter. LUNGS: Clear to auscultation and percussion. HEART: Regular. No murmurs, gallops or rubs are appreciated. ABDOMEN: Flat. There is some tenderness on palpation of the midepigastric to right upper quadrant area. Bowel sounds are normal. EXTREMITIES: Free of cyanosis, clubbing or edema. Stools are heme negative as per ER note. NEUROLOGICAL: He is awake, alert and oriented with no focal neurological signs. LABORATORY STUDIES: Reveal the white blood cell count to be 9.8, hemoglobin and hematocrit are 16 and 45 respectively, platelet count is 240. Sodium is 140, potassium is 3, blood urea nitrogen is 15, creatinine is 1.2, nonfasting glucose is 108. Liver enzymes are normal. EKG shows regular sinus rhythm. Chest x-ray is unremarkable. IMPRESSION: The patient is admitted with hematemesis. We have not yet seen a drop in the hemoglobin; however, the patient will be followed. Dr. Clayton is called for gastroenterology and an endoscopy is to be anticipated. As mentioned above, the H and H remained stable to date. The patient is found to have O+ type blood. Cecilio Rodriguez MD
== END 2017-11-06 11:48 | disposition home or self-care (01) | DRG 382 ==
LOC: ED 19:25 → ERH 20:54 → 2RSO 22:12 → 5RNO 11-05 18:57
PROVIDERS: ADMIT Internal Medicine; ATTEND Internal Medicine
PROC: 0DB68ZX Excision of Stomach, Via Natural or Artificial Opening Endoscopic, Diagnostic (ICD-10-PCS; 2017-11-05)
PROC: 0DB58ZX Excision of Esophagus, Via Natural or Artificial Opening Endoscopic, Diagnostic (ICD-10-PCS; principal; 2017-11-05 15:00)
DX: K22.11 Ulcer of esophagus with bleeding (principal); K21.0 Gastro-esophageal reflux disease with esophagitis; F17.210 Nicotine dependence, cigarettes, uncomplicated; K29.70 Gastritis, unspecified, without bleeding; F12.90 Cannabis use, unspecified, uncomplicated; R07.0 Pain in throat; E87.6 Hypokalemia; K44.9 Diaphragmatic hernia without obstruction or gangrene

== ENCOUNTER 2018-02-20 18:35 | Emergency (ER) | payer SELFPAY ==
[2018-02-20 18:36] VITALS: BMI 25.7
[2018-02-20 18:56] VITALS: RESP 17
[2018-02-20 19:24] VITALS: TEMP 97.9
[2018-02-20] MEDS ORDERED: Sodium Chloride 0.9% 1,000 ML IV SCH (19:30)
--- NOTE | 2018-02-20 19:37 | ED PDOC ---
Arrival/HPI - General Chief Complaint: Weakness/Neurological Deficit Time Seen by Provider: 02/20/18 19:08 Historian: Patient - History of Present Illness Narrative History of Present Illness (Text): 02/20/18 19:34 Patient is a 22 year old male who presents to the Emergency department complaining of palpitations. Patient reports that his symptoms started earlier today after taking OTC cold medication. Patient denies fevers, chills, cough, shortness of breath, chest pain, dyspnea on exertion, abdominal pain, nausea, vomiting, diarrhea, back pain, neck pain, headache, dizziness, or any other complaint. Time/Duration: Other (Today) Symptom Onset: Gradual Context: Home Past Medical History - Provider Review Nursing Documentation Reviewed: Yes - Infectious Disease Hx of Infectious Diseases: None - Tetanus Immunization Tetanus Immunization: Unknown - Cardiac Hx Cardiac Disorders: No - Pulmonary Hx Respiratory Disorders: Yes Hx Bronchitis: Yes - Neurological Hx Neurological Disorder: No - HEENT Hx HEENT Disorder: No - Renal Hx Renal Disorder: No - Endocrine/Metabolic Hx Endocrine Disorders: No - Hematological/Oncological Hx Blood Disorders: No - Integumentary Hx Dermatological Disorder: No - Musculoskeletal/Rheumatological Hx Falls: No - Gastrointestinal Hx Gastrointestinal Disorders: Yes Hx Gastritis: Yes Hx Gastroesophageal Reflux: Yes - Genitourinary/Gynecological Hx Genitourinary Disorders: No - Psychiatric Hx Psychophysiologic Disorder: No Hx Depression: No Hx Emotional Abuse: No Hx Physical Abuse: No Hx Substance Use: No (former marijuana) - Surgical History Other/Comment: bilateral feet - Anesthesia Hx Anesthesia: Yes Hx Anesthesia Reactions: No Hx Malignant Hyperthermia: No - Suicidal Assessment Feels Threatened In Home Enviroment: No Family/Social History - Physician Review Nursing Documentation Reviewed: Yes Family/Social History: No Known Family HX Smoking Status: Light Smoker < 10 Cigarettes Daily Hx Alcohol Use: No Hx Substance Use: No (former marijuana) Substance used: Marijuana Hx Substance Use Treatment: No Allergies/Home Meds Allergies/Adverse Reactions: Allergies No Known Allergies Allergy (Verified 11/11/16 15:53) Review of Systems - Physician Review All systems were reviewed & negative as marked: Yes - Review of Systems Constitutional: absent: Fevers, Other (chills) Respiratory: absent: SOB, Cough Cardiovascular: Palpitations. absent: Chest Pain, MILAN Gastrointestinal: absent: Abdominal Pain, Constipation, Diarrhea, Nausea, Vomiting Genitourinary Male: absent: Urinary Output Changes Musculoskeletal: absent: Back Pain, Neck Pain Neurological: absent: Headache, Dizziness Physical Exam Vital Signs Reviewed: Yes Vital Signs Temp Pulse Resp BP Pulse Ox 02/20/18 19:16 97.9 F 70 17 139/78 98 02/20/18 18:50 98.0 F 79 17 150/78 99 Temperature: Afebrile Blood Pressure: Normal Pulse: Regular Respiratory Rate: Normal Appearance: Positive for: Well-Appearing Mental Status: Positive for: Alert and Oriented X 3 - Systems Exam Head: Present: Atraumatic, Normocephalic Pupils: Present: PERRL Extroacular Muscles: Present: EOMI Conjunctiva: Present: Normal Mouth: Present: Moist Mucous Membranes Neck: Present: Normal Range of Motion Respiratory/Chest: Present: Clear to Auscultation, Good Air Exchange. No: Respiratory Distress, Accessory Muscle Use Cardiovascular: Present: Regular Rate and Rhythm, Normal S1, S2. No: Murmurs Abdomen: No: Tenderness, Distention, Peritoneal Signs Back: Present: Normal Inspection Upper Extremity: Present: Normal Inspection. No: Cyanosis, Edema Lower Extremity: Present: Normal Inspection. No: Edema Neurological: Present: GCS=15, CN II-XII Intact, Speech Normal Skin: Present: Warm, Dry, Normal Color. No: Rashes Psychiatric: Present: Alert, Oriented x 3, Normal Insight, Normal Concentration Medical Decision Making ED Course and Treatment: 02/20/18 19:36 Impression: Patient is a 22 year old male complaining of palpitations since taking OTC cough medication. Differential Diagnosis included but are not limited to: Palpitations Plan: -- EKG -- Cardiac enzyme -- Blood work -- Labs -- Chest X-ray -- IV fluids -- Oxygen via nasal cannula -- Reassess and disposition Prior Visits: Notes and results from previous visits were reviewed. Progress Notes: Reviewed EKG, NSR at 67 bpm. Incomplete RBBB. No acute changes. 02/20/18 21:25 Chest X-Ray reviewed, shows no acute processes. 02/20/18 22:20 On reevaluation, the patient feels better and is in no acute distress. I have discussed the results and plan with the patient, who expresses understanding. Patient given the opportunity to ask question, all questions were answered and there is agreement with the plan to discharge the patient home. Patient is stable for discharge. Patient was instructed to follow up with physician/clinic in 1-2 days or return if symptoms persist/worsen or new concerning symptoms arise. - Lab Interpretations I have reviewed the lab results: Yes - RAD Interpretation Radiology Orders: 02/20/18 19:15 CHEST PORTABLE [RAD] Stat Prize Jacker: ED Physician - EKG Interpretation Interpreted by ED Physician: Yes Type: 12 lead EKG - Medication Orders Current Medication Orders: Sodium Chloride (Sodium Chloride 0.9%) 1,000 mls @ 80 mls/hr IV .[id number] FILIPPO - Scribe Statement The provider has reviewed the documentation as recorded by the Scribe Ariel Fraser Provider Scribe Attestation: All medical record entries made by the Scribe were at my direction and personally dictated by me. I have reviewed the chart and agree that the record accurately reflects my personal performance of the history, physical exam, medical decision making, and the department course for this patient. I have also personally directed, reviewed, and agree with the discharge instructions and disposition. Disposition/Present on Arrival - Present on Arrival History of DVT/PE: No History of Uncontrolled Diabetes: No Urinary Catheter: No History of Decub. Ulcer: No History Surgical Site Infection Following: None - Disposition Diagnosis: Gastritis, Palpitations Disposition: HOME/ ROUTINE Disposition Time: 22:28 Patient Problems: Current Active Problems Problem Status Onset Gastritis Acute Palpitations Acute Discharge Instructions (ExitCare): Gastritis, Palpitations Prescriptions: Pantoprazole Sodium [Protonix] 40 mg PO DAILY #14 ect Forms: [employer] (Nepali)
[2018-02-20 20:24] LABS: BASO # 0.03 K/mm3 (0.0-2.0); BASO % 0.5 % (0.0-3.0); EOS # 0.5 (0.0-0.7); EOS % 8.3 % (1.5-5.0); GRAN # 3.59 (1.4-6.5); GRAN % 56.9 % (50.0-68.0); HEMOGLOBIN 13.9 g/dL (14.0-18.0); LYMPH # 1.5 (1.2-3.4); LYMPH % 24.1 % (22.0-35.0); MEAN CELL VOLUME 88.1 fl (80.0-105.0); MEAN CORPUSCULAR HEMOGLOBIN 29.6 pg (25.0-35.0); MEAN CORPUSCULAR HGB CONC 33.6 g/dl (31.0-37.0); MEAN PLATELET VOLUME 10.2 fl (7.0-11.0); MONO # 0.6 (0.1-0.6); MONO % 10.2 % (1.0-6.0); RBC 4.7 10^6/uL (3.5-6.1); RED CELL DISTRIBUTION WIDTH 13.7 % (11.5-14.5); WHITE BLOOD COUNT 6.3 10^3/ul (4.5-11.0)
[2018-02-20 20:42] LABS: ALB/GLOB RATIO 1.4 (1.1-1.8); ALBUMIN 4.3 g/dL (3.0-4.8); ALT/SGPT 29 U/L (7-56); AST/SGOT 30 U/L (17-59); BLOOD UREA NITROGEN 11 mg/dL (7-21); CALCIUM 9.4 mg/dL (8.4-10.5); GFR NON-AFRICAN AMERICAN > 60
[2018-02-20 20:53] LABS: TROPONIN I < 0.01 ng/mL
[2018-02-20 22:35] VITALS: BP 124/73; PULSE 82; O2SAT 100
--- NOTE | 2018-02-21 07:33 | RAD ---
Date of service: 02/20/2018 HISTORY: palpitations COMPARISON: Portable chest 11/04/2017. FINDINGS: LUNGS: No active pulmonary disease. PLEURA: No significant pleural effusion identified, no pneumothorax apparent. CARDIOVASCULAR: Normal. OSSEOUS STRUCTURES: No significant abnormalities. VISUALIZED UPPER ABDOMEN: Normal. OTHER FINDINGS: None. IMPRESSION: No interval acute cardiopulmonary disease appreciated.
--- NOTE | 2018-02-21 13:03 | CARD ---
APPROVED REPORT Date of service: 02/20/2018 EKG Measurement Heart [id number] <Conclusion> Normal sinus rhythm Right bundle branch block
== END 2018-02-20 22:34 | disposition home or self-care (01) ==
LOC: ED 18:35
DX: R00.2 Palpitations (principal); K29.70 Gastritis, unspecified, without bleeding
CPT/HCPCS: 71045; 80053; 82550; 83615; 84484; 85025; 93005; 96374; 99282; C9113; J7030

== ENCOUNTER 2018-03-11 04:28 | Emergency (ER) | payer SELFPAY ==
[2018-03-11 04:35] VITALS: BMI 26.4
[2018-03-11 04:42] VITALS: RESP 18; TEMP 97.9
--- NOTE | 2018-03-11 04:45 | ED PDOC ---
Arrival/HPI - General Chief Complaint: Chest Pain Time Seen by Provider: 03/11/18 04:33 Historian: Patient - History of Present Illness Narrative History of Present Illness (Text): 03/11/18 04:45 Abhinav Alexis is a 22 year old male smoker, whose past medical history includes GERD and alcohol abuse, complaining of chest pain. Patient states he developed sharp left-sided chest pain worsened with deep inspiration after getting out of work at 00:30 tonight. Patient reports associated shortness of breath, light- headedness, and mild headache. Patient initially attributed symptoms to his GERD but became concerned and came in for further evaluation. Patient denies any fever, chills, nausea, vomiting, diarrhea, urinary symptoms, back pain, neck pain, or any other complaints. Symptom Onset: Gradual Symptom Course: Unchanged Activities at Onset: Light Context: Home Past Medical History - Provider Review Nursing Documentation Reviewed: Yes - Infectious Disease Hx of Infectious Diseases: None - Tetanus Immunization Tetanus Immunization: Unknown - Cardiac Hx Cardiac Disorders: No - Pulmonary Hx Respiratory Disorders: Yes Hx Bronchitis: Yes - Neurological Hx Neurological Disorder: No - HEENT Hx HEENT Disorder: No - Renal Hx Renal Disorder: No - Endocrine/Metabolic Hx Endocrine Disorders: No - Hematological/Oncological Hx Blood Disorders: No - Integumentary Hx Dermatological Disorder: No - Musculoskeletal/Rheumatological Hx Falls: No - Gastrointestinal Hx Gastrointestinal Disorders: Yes Hx Gastritis: Yes Hx Gastroesophageal Reflux: Yes - Genitourinary/Gynecological Hx Genitourinary Disorders: No - Psychiatric Hx Psychophysiologic Disorder: No Hx Depression: No Hx Emotional Abuse: No Hx Physical Abuse: No Hx Substance Use: No (Denies) - Surgical History Other/Comment: bilateral feet - Anesthesia Hx Anesthesia: Yes Hx Anesthesia Reactions: No Hx Malignant Hyperthermia: No - Suicidal Assessment Feels Threatened In Home Enviroment: No Family/Social History - Physician Review Nursing Documentation Reviewed: Yes Family/Social History: Unknown Family HX Smoking Status: Light Smoker < 10 Cigarettes Daily Hx Alcohol Use: No Hx Substance Use: No (Denies) Substance used: Marijuana Hx Substance Use Treatment: No Allergies/Home Meds Allergies/Adverse Reactions: Allergies No Known Allergies Allergy (Verified 11/11/16 15:53) Review of Systems - Physician Review All systems were reviewed & negative as marked: Yes - Review of Systems Constitutional: Normal. absent: Fevers Eyes: Normal ENT: Normal Respiratory: SOB Cardiovascular: Chest Pain Gastrointestinal: Normal. absent: Abdominal Pain, Diarrhea, Nausea, Vomiting Genitourinary Male: Normal. absent: Dysuria, Frequency, Hematuria, Urinary Output Changes Musculoskeletal: Normal. absent: Back Pain, Neck Pain Skin: Normal. absent: Rash Neurological: Headache. absent: Dizziness Endocrine: Normal Hemo/Lymphatic: Normal Psychiatric: Normal Physical Exam Vital Signs Reviewed: Yes Vital Signs Temp Pulse Resp BP Pulse Ox 03/11/18 04:42 97.9 F 72 18 127/79 98 Temperature: Afebrile Blood Pressure: Normal Pulse: Regular Respiratory Rate: Normal Appearance: Positive for: Well-Appearing, Non-Toxic, Comfortable Pain Distress: None Mental Status: Positive for: Alert and Oriented X 3 - Systems Exam Head: Present: Atraumatic, Normocephalic Pupils: Present: PERRL Extroacular Muscles: Present: EOMI Conjunctiva: Present: Normal Mouth: Present: Moist Mucous Membranes Neck: Present: Normal Range of Motion Respiratory/Chest: Present: Clear to Auscultation, Good Air Exchange. No: Respiratory Distress, Accessory Muscle Use Cardiovascular: Present: Regular Rate and Rhythm, Normal S1, S2. No: Murmurs Abdomen: No: Tenderness, Distention, Peritoneal Signs Back: Present: Normal Inspection Upper Extremity: Present: Normal Inspection. No: Cyanosis, Edema Lower Extremity: Present: Normal Inspection. No: Edema Neurological: Present: GCS=15, CN II-XII Intact, Speech Normal Skin: Present: Warm, Dry, Normal Color. No: Rashes Psychiatric: Present: Alert, Oriented x 3, Normal Insight, Normal Concentration Medical Decision Making ED Course and Treatment: 03/11/18 04:45 Impression: 22 year old male complaining of sharp chest pain, shortness of breath, light- headedness, and mild headache. Plan: -- EKG -- Chest X-ray -- Labs, cardiac enzymes, D-dimer -- Urinalysis -- Protonix -- Reassess and disposition Prior Visits: Notes and results from previous visits were reviewed. On 02/20/2018, pt was seen in the Emergency department for palpitations. Pt was discharged home. Progress Notes: Reviewed EKG, sinus rhythm at 69 bpm. Incomplete RBBB. Non-specific ST/T changes. 03/11/18 05:18 Chest X-ray reviewed, shows no acute processes. 03/11/18 06:42 pt feels better states may be withdrawing from weed and cocaine - Lab Interpretations I have reviewed the lab results: Yes - RAD Interpretation Glass Carrier: ED Physician - EKG Interpretation Interpreted by ED Physician: Yes Type: 12 lead EKG - Scribe Statement The provider has reviewed the documentation as recorded by the Scribe Eusebia Ybarra Provider Scribe Attestation: All medical record entries made by the Scribe were at my direction and personally dictated by me. I have reviewed the chart and agree that the record accurately reflects my personal performance of the history, physical exam, medical decision making, and the department course for this patient. I have also personally directed, reviewed, and agree with the discharge instructions and disposition. Disposition/Present on Arrival - Present on Arrival Any Indicators Present on Arrival: No History of DVT/PE: No History of Uncontrolled Diabetes: No Urinary Catheter: No History of Decub. Ulcer: No History Surgical Site Infection Following: None - Disposition Have Diagnosis and Disposition been Completed?: Yes Diagnosis: Chest pain Disposition: HOME/ ROUTINE Disposition Time: 06:43 Patient Problems: Current Active Problems Problem Status Onset Chest pain Acute Condition: GOOD Discharge Instructions (ExitCare): Chest Pain, Chest Pain (ED) Referrals: Cecilio Rodriguez MD [Primary Care Provider] - Follow up with primary Forms: [employer] (Spanish)
[2018-03-11 05:35] LABS: TROPONIN I < 0.01 ng/mL
[2018-03-11 05:36] LABS: BASO # 0.04 K/mm3 (0.0-2.0); BASO % 0.6 % (0.0-3.0); EOS # 0.5 (0.0-0.7); EOS % 7.2 % (1.5-5.0); GRAN # 2.37 (1.4-6.5); GRAN % 35.5 % (50.0-68.0); HEMOGLOBIN 13.3 g/dL (14.0-18.0); LYMPH # 3.1 (1.2-3.4); LYMPH % 46.1 % (22.0-35.0); MEAN CELL VOLUME 87.4 fl (80.0-105.0); MEAN CORPUSCULAR HEMOGLOBIN 29.4 pg (25.0-35.0); MEAN CORPUSCULAR HGB CONC 33.6 g/dl (31.0-37.0); MEAN PLATELET VOLUME 9.9 fl (7.0-11.0); MONO # 0.7 (0.1-0.6); MONO % 10.6 % (1.0-6.0); RBC 4.53 10^6/uL (3.5-6.1); RED CELL DISTRIBUTION WIDTH 13.7 % (11.5-14.5); WHITE BLOOD COUNT 6.7 10^3/ul (4.5-11.0)
[2018-03-11 06:07] LABS: ALB/GLOB RATIO 1.5 (1.1-1.8); ALBUMIN 4.5 g/dL (3.0-4.8); ALT/SGPT 30 U/L (7-56); AST/SGOT 32 U/L (17-59); BLOOD UREA NITROGEN 15 mg/dL (7-21); CALCIUM 9.5 mg/dL (8.4-10.5); GFR NON-AFRICAN AMERICAN > 60
[2018-03-11 06:40] LABS: URINE BILIRUBIN NEGATIVE (NEGATIVE); URINE BLOOD NEGATIVE (NEGATIVE); URINE GLUCOSE (UA) NEGATIVE (NEGATIVE); URINE LEUKOCYTE ESTERASE NEGATIVE Leu/uL (NEGATIVE); URINE PROTEIN NEGATIVE mg/dL (<30 mg/dL); URINE UROBILINOGEN 0.2 E.U./dL (<1 E.U./dL)
[2018-03-11 06:44] LABS: URINE APPEARANCE CLEAR (CLEAR); URINE COLOR YELLOW (YELLOW)
[2018-03-11 07:10] VITALS: BP 121/79; PULSE 75; O2SAT 100
--- NOTE | 2018-03-11 09:21 | RAD ---
Date of service: 03/11/2018 HISTORY: cp COMPARISON: 02/20/2018 FINDINGS: LUNGS: No active pulmonary disease. PLEURA: No significant pleural effusion identified, no pneumothorax apparent. CARDIOVASCULAR: Normal. OSSEOUS STRUCTURES: No significant abnormalities. VISUALIZED UPPER ABDOMEN: Normal. OTHER FINDINGS: None. IMPRESSION: No active disease.
--- NOTE | 2018-03-11 14:49 | CARD ---
APPROVED REPORT Date of service: 03/11/2018 EKG Measurement Heart [id number] <Conclusion> Normal sinus rhythm Incomplete right bundle branch block Minimal voltage criteria for LVH, may be normal variant Nonspecific T wave abnormality Abnormal ECG
== END 2018-03-11 06:45 | disposition home or self-care (01) ==
LOC: ED 04:28
DX: R07.9 Chest pain, unspecified (principal); K21.9 Gastro-esophageal reflux disease without esophagitis
CPT/HCPCS: 71045; 80053; 81003; 82550; 83615; 83735; 84484; 85025; 85378; 93005; 96374; 99283; C9113